=== PATIENT | female | born 1930 | race African-American/Black ===

== ENCOUNTER 2017-10-05 21:30 | Observation (INO) | payer MEDICARE, OTHER ==
[~2017-10-05] VITALS: Ht 165.1 cm; Wt 55.0 kg
[~2017-10-05 21:30] MED LIST: 1-ME1LIQ PO; ARIC5TAB6 PO; ASPI1TAB56 PO; ATOR40TA16 PO; CARV12.5 PO; FLEC150T PO; LEVO25TA4 PO; LIPI80TA16 PO; LISI-515 PO; MECL-62 PO; NIFE30TA8 PO; WARF5TAB PO
[2017-10-05 22:09] VITALS: BP 229/97; PULSE 77; RESP 16; TEMP 98.3; O2SAT 100
--- NOTE | 2017-10-05 22:15 | PD ---
HPI Chief Complaint: Psychiatric Symptoms Time Seen by Provider: 22:14 Travel History International Travel<30 days: No Contact w/Intl Traveler<30days: No Traveled to known affect area: No History of Present Illness HPI 87-year-old female with history of dementia, CAD, A. fib, presents emergency department under a Cortez act. Patient was with her friends at a restaurant. She was not acting herself. She did not remember where she was or why she was there. This is not her baseline. Police were called and they placed the patient under Cortez act. Patient is very pleasant. She tells me that she is here because she has not been to the doctor in a while and they wanted her to "get checked out." She denies any acute medical needs. Denies any recent head trauma. Denies any pain. Patient has no other symptoms to report. PFSH Past Medical History Hx Anticoagulant Therapy: Yes (COUMADIN ) Atrial Fibrillation: Yes Blood Disorders: No Anxiety: Yes Heart Rhythm Problems: No Cancer: No Cardiac Catheterization: Yes Cardiovascular Problems: Yes High Cholesterol: No Chemotherapy: No Chest Pain: Yes Congestive Heart Failure: No Coronary Artery Disease: Yes Diabetes: No Diminished Hearing: No Endocrine: No Genitourinary: No Hepatitis: No Hiatal Hernia: No Hypertension: Yes Immune Disorder: No Musculoskeletal: Yes (OSTEOPOROSIS, ARTHRITIS) Neurologic: Yes (OCCAS. HEADACHES) Psychiatric: No Reproductive: No Respiratory: No Radiation Therapy: No Thyroid Disease: No PNEUMOCCOCAL Vaccine (Year): 1 Menopausal: Yes Past Surgical History AICD: No Cardiac Surgery: Yes (VALVE REPLACEMENT) Cholecystectomy: Yes Genitourinary Surgery: Yes (RENAL CALCULI RETRIEVAL) Joint Replacement: No Pacemaker: No Other Surgery: Yes (HEART BYPASS SURG) Social History Alcohol Use: No Tobacco Use: No Substance Use: No Allergies-Medications (Allergen,Severity, Reaction): Coded Allergies: penicillin G (Unverified Allergy, Mild, HIVES, 02/21/17) Reported Meds & Prescriptions Reported Meds & Active Scripts Active Meclizine Hcl (Meclizine HCl) 25 Mg Tab 25 Mg PO TID PRN Nifedipine ER 24 HR (Nifedipine) 30 Mg Tab 30 Mg PO BID Lisinopril 20 Mg Tab 20 Mg PO Q12HR Levothyroxine (Levothyroxine Sodium) 25 Mcg Tab 25 Mcg PO DAILY@0600 Aricept (Donepezil HCl) 5 Mg Tablet 10 Mg PO HS Adult Aspirin EC Low Strength (Aspirin) 81 Mg Tabec 81 Mg PO DAILY Atorvastatin (Atorvastatin Calcium) 40 Mg Tab 40 Mg PO DAILY Reported Warfarin Sodium 5 mg (Warfarin Sodium) 5 Mg Tab 1 Tab PO DAILY Coreg 12.5 mg (Carvedilol) 12.5 Mg Tab 12.5 Mg PO BID Amlodipine Besylate 10 Mg Tab 10 Mg PO BID Lipitor (Atorvastatin Calcium) 80 Mg Tab 80 Mg PO HS Tambocor 150 mg (Flecainide Acetate) 150 Mg Tab 75 Mg PO BID Review of Systems Except as stated in HPI: all other systems reviewed are Neg Physical Exam Narrative GENERAL: Well-nourished, very pleasant female patient, in no acute distress. SKIN: Focused skin assessment warm/dry. HEAD: Atraumatic. Normocephalic. EYES: Pupils equal and round. No scleral icterus. No injection or drainage. ENT: No nasal bleeding or discharge. Mucous membranes pink and moist. NECK: Trachea midline. No JVD. CARDIOVASCULAR: Regular rate and rhythm. 2/6 systolic murmur appreciated. RESPIRATORY: No accessory muscle use. Clear to auscultation. Breath sounds equal bilaterally. GASTROINTESTINAL: Abdomen soft, non-tender, nondistended. Hepatic and splenic margins not palpable. MUSCULOSKELETAL: No obvious deformities. No clubbing. No cyanosis. No edema. NEUROLOGICAL: Awake. Oriented to self. She does know she is in the hospital. No obvious cranial nerve deficits. Motor grossly within normal limits. Equal strength bilateral extremities. Normal speech. PSYCHIATRIC: Very pleasant mood and affect. Data Data Last Documented VS Vital Signs Date Time Temp Pulse Resp B/P (MAP) Pulse Ox O2 Delivery O2 Flow Rate FiO2 10/05/17 22:09 98.3 77 16 229/97 (141) 100 Room Air Orders Orders Complete Blood Count With Diff (10/05/17 22:13) Comprehensive Metabolic Panel (10/05/17 22:13) Urinalysis - C+S If Indicated (10/05/17 22:13) Psych Screen (10/05/17 22:13) Drug Screen, Random Urine (10/05/17 22:13) Alcohol (Ethanol) (10/05/17 22:13) Salicylates (Aspirin) (10/05/17 22:13) Tylenol (Acetaminophen) (10/05/17 22:13) Coag Profile (10/05/17 22:23) Ct Brain W/O Iv Contrast(Rout) (10/05/17 ) Labs Laboratory Tests Test 10/05/17 22:10 10/05/17 22:20 White Blood Count 8.1 TH/MM3 Red Blood Count 4.58 MIL/MM3 Hemoglobin 10.6 GM/DL Hematocrit 33.1 % Mean Corpuscular Volume 72.2 FL Mean Corpuscular Hemoglobin 23.2 PG Mean Corpuscular Hemoglobin Concent 32.2 % Red Cell Distribution Width 16.3 % Platelet Count 235 TH/MM3 Mean Platelet Volume 7.6 FL Neutrophils (%) (Auto) 56.1 % Lymphocytes (%) (Auto) 31.0 % Monocytes (%) (Auto) 11.1 % Eosinophils (%) (Auto) 1.0 % Basophils (%) (Auto) 0.8 % Neutrophils # (Auto) 4.5 TH/MM3 Lymphocytes # (Auto) 2.5 TH/MM3 Monocytes # (Auto) 0.9 TH/MM3 Eosinophils # (Auto) 0.1 TH/MM3 Basophils # (Auto) 0.1 TH/MM3 CBC Comment DIFF FINAL Differential Comment MDM Medical Decision Making Medical Screen Exam Complete: Yes Emergency Medical Condition: Yes Medical Record Reviewed: Yes Differential Diagnosis Electrolyte abnormality versus dementia versus intracranial etiology versus UTI Narrative Course 87-year-old female presents emergency department for evaluation under Cortez act. Patient was placed under Cortez act due to altered mental status from her baseline while she was at a restaurant with her friends. Patient is very pleasant here. She has equal strength, no focal deficits weakness. She is awake and oriented to self. She does know she is at the hospital. Patient is quite hypertensive as well here. I discussed the patient my attending physician. Lab work as well as UA, CT imaging of the brain is ordered while the patient is in the ambulance hallway. Patient will be transferred to a medical bed once one becomes available. Care will be assumed by that medical provider. Diagnosis Primary Impression: Altered mental status Qualified Codes: R41.82 - Altered mental status, unspecified Additional Impression: Dementia Qualified Codes: F03.90 - Unspecified dementia without behavioral disturbance Condition: Stable Maggy JohnsonP Oct 05, 2017 22:15
[2017-10-05 22:30] LABS: AUTOMATED NEUTROPHIL # 4.5 TH/MM3 (1.8-7.7); BASOPHIL # 0.1 TH/MM3 (0-0.2); BASOPHIL % 0.8 % (0.0-2.0); EOSINOPHIL # 0.1 TH/MM3 (0-0.4); HEMATOCRIT 33.1 % (35.0-46.0); HEMOGLOBIN 10.6 GM/DL (11.6-15.3); LYMPHOCYTE # 2.5 TH/MM3 (1.0-4.8); MEAN CELL VOLUME 72.2 FL (80.0-100.0); MEAN CORPUSCULAR HEMOGLOBIN 23.2 PG (27.0-34.0); MEAN CORPUSCULAR HGB CONC 32.2 % (32.0-36.0); MEAN PLATELET VOLUME 7.6 FL (7.0-11.0); MONO % 11.1 % (0.0-8.0); MONOCYTE # 0.9 TH/MM3 (0-0.9); NEUT % 56.1 % (16.0-70.0); PLATELET COUNT 235 TH/MM3 (150-450); RED BLOOD COUNT 4.58 MIL/MM3 (4.00-5.30); RED CELL DISTRIBUTION WIDTH 16.3 % (11.6-17.2); WHITE BLOOD COUNT 8.1 TH/MM3 (4.0-11.0)
[2017-10-05 22:51] LABS: ALBUMIN 4.2 GM/DL (3.4-5.0); ALT (GPT) 15 U/L (10-53); AST (GOT) 23 U/L (15-37); BICARBONATE 29.2 MEQ/L (21.0-32.0); BLOOD UREA NITROGEN 28 MG/DL (7-18); CALCIUM 9.5 MG/DL (8.5-10.1); CHLORIDE 105 MEQ/L (98-107); CREATININE 1.19 MG/DL (0.50-1.00); GLOMERULAR FILTRATION RATE 52 ML/MIN (>89); GLUCOSE,RANDOM 146 MG/DL (74-106); SODIUM (NA) 142 MEQ/L (136-145)
[2017-10-05 22:53] LABS: ALKALINE PHOSPHATASE 63 U/L (45-117); TOTAL BILIRUBIN ADULT 0.6 MG/DL (0.2-1.0)
[2017-10-05 22:54] LABS: ACETAMINOPHEN LESS THAN 2.0 MCG/ML (10.0-30.0)
[2017-10-05 22:58] LABS: INTERNATIONAL NORMALIZED RATIO 1.1 RATIO; PROTHROMBIN TIME - PATIENT 10.8 SEC (9.8-11.6)
--- NOTE | 2017-10-05 23:13 | RADRPT ---
EXAM DATE/TIME: 10/05/2017 22:46 [facility] COMPARISON: CT BRAIN W/O CONTRAST, February 13, 2017, 19:44. INDICATIONS : Altered mental status. RADIATION DOSE: 35.12 CTDIvol (mGy) MEDICAL HISTORY : Non-responsive. SURGICAL HISTORY : Non-responsive. ENCOUNTER: Initial ACUITY: 1 day PAIN SCALE: Non-responsive LOCATION: cranial TECHNIQUE: Multiple contiguous axial images were obtained of the head. Using automated exposure control and adj ustment of the mA and/or kV according to patient size, radiation dose was kept as low as reasonably a chievable to obtain optimal diagnostic quality images. DICOM format image data is available electro nically for review and comparison. FINDINGS: CEREBRUM: The ventricles are and cortical sulci are widened. The ventricles are widened out of proportion to th e sulcal widening. There is persistent mild decreased density in the right parietal white matter. No evidence of midline shift, mass lesion, hemorrhage or acute infarction. No extra-axial fluid collec tions are seen. POSTERIOR FOSSA: The cerebellum and brainstem are intact. The 4th ventricle is midline. The cerebellopontine angle i s unremarkable. EXTRACRANIAL: The visualized portion of the orbits is intact. SKULL: The calvaria is intact. No evidence of skull fracture. CONCLUSION: 1. Atrophy. The ventricles are dilated out of proportion to the sulcal widening which suggests normal pressure hydrocephalus. 2. An acute area of hemorrhage or mass effect is not seen. Vishal Moreland MD on October 05, 2017 at 23:10 Board Certified Radiologist. This report was verified electronically.
[2017-10-05 23:15] VITALS: BP 219/99; PULSE 69; RESP 18; TEMP 98.5; O2SAT 99
[2017-10-06] VITALS (8 sets, daily range): BP systolic 164–236; BP diastolic 76–107; PULSE 47–73; RESP 12–18; TEMP 98; O2SAT 96–100
[2017-10-06 00:36] LABS: BACTERIA, URINE RARE /hpf; BILIRUBIN, URINE NEG (NEG); BLOOD, URINE TRACE (NEG); GLUCOSE,URINE NEG (NEG); HYALINE CAST, URINE 12 /lpf (RARE); KETONE, URINE NEG (NEG); MUCUS URINE FEW /lpf (OCC); NITRITE,URINE NEG (NEG); PH, URINE 5.5 (5.0-8.5); SQUAMOUS EPITHELIAL CELL URINE 3 /hpf (0-5); URINE COLOR YELLOW (YELLW/STRAW); URINE LEUKOCYTE ESTERASE LARGE (NEG)
[2017-10-06] MEDS ORDERED: cefTRIAXone INJ 1,000 MG in SODIUM CHLORIDE 0.9% INJ 100 ML IV ONE ×2 (00:45→12:00)
[2017-10-06] MEDS ORDERED: CEPH-460 PO (01:14)
--- NOTE | 2017-10-06 01:14 | PD ---
Data Data Last Documented VS Vital Signs Date Time Temp Pulse Resp B/P (MAP) Pulse Ox O2 Delivery O2 Flow Rate FiO2 10/06/17 00:13 73 18 236/107 (150) 100 Room Air 10/05/17 23:15 98.5 Orders Orders Complete Blood Count With Diff (10/05/17 22:13) Comprehensive Metabolic Panel (10/05/17 22:13) Urinalysis - C+S If Indicated (10/05/17 22:13) Psych Screen (10/05/17 22:13) Drug Screen, Random Urine (10/05/17 22:13) Alcohol (Ethanol) (10/05/17 22:13) Salicylates (Aspirin) (10/05/17 22:13) Tylenol (Acetaminophen) (10/05/17 22:13) Coag Profile (10/05/17 22:23) Ct Brain W/O Iv Contrast(Rout) (10/05/17 ) Urine Culture (10/06/17 00:10) Ceftriaxone Inj (Rocephin Inj) (10/06/17 00:45) Lisinopril (Prinivil) (10/06/17 01:15) Labs Laboratory Tests Test 10/05/17 22:10 10/05/17 22:20 10/06/17 00:10 White Blood Count 8.1 TH/MM3 Red Blood Count 4.58 MIL/MM3 Hemoglobin 10.6 GM/DL Hematocrit 33.1 % Mean Corpuscular Volume 72.2 FL Mean Corpuscular Hemoglobin 23.2 PG Mean Corpuscular Hemoglobin Concent 32.2 % Red Cell Distribution Width 16.3 % Platelet Count 235 TH/MM3 Mean Platelet Volume 7.6 FL Neutrophils (%) (Auto) 56.1 % Lymphocytes (%) (Auto) 31.0 % Monocytes (%) (Auto) 11.1 % Eosinophils (%) (Auto) 1.0 % Basophils (%) (Auto) 0.8 % Neutrophils # (Auto) 4.5 TH/MM3 Lymphocytes # (Auto) 2.5 TH/MM3 Monocytes # (Auto) 0.9 TH/MM3 Eosinophils # (Auto) 0.1 TH/MM3 Basophils # (Auto) 0.1 TH/MM3 CBC Comment DIFF FINAL Differential Comment Blood Urea Nitrogen 28 MG/DL Creatinine 1.19 MG/DL Random Glucose 146 MG/DL Total Protein 9.0 GM/DL Albumin 4.2 GM/DL Calcium Level 9.5 MG/DL Alkaline Phosphatase 63 U/L Aspartate Amino Transf (AST/SGOT) 23 U/L Alanine Aminotransferase (ALT/SGPT) 15 U/L Total Bilirubin 0.6 MG/DL Sodium Level 142 MEQ/L Potassium Level 3.4 MEQ/L Chloride Level 105 MEQ/L Carbon Dioxide Level 29.2 MEQ/L Anion Gap 8 MEQ/L Estimat Glomerular Filtration Rate 52 ML/MIN Salicylates Level 3.1 MG/DL Acetaminophen Level LESS THAN 2.0 MCG/ML Ethyl Alcohol Level LESS THAN 3 MG/DL Prothrombin Time 10.8 SEC Prothromb Time International Ratio 1.1 RATIO Activated Partial Thromboplast Time 21.9 SEC Urine Color YELLOW Urine Turbidity CLEAR Urine pH 5.5 Urine Specific [place] 1.029 Urine Protein 30 mg/dL Urine Glucose (UA) NEG mg/dL Urine Ketones NEG mg/dL Urine Occult Blood TRACE Urine Nitrite NEG Urine Bilirubin NEG Urine Urobilinogen LESS THAN 2.0 MG/DL Urine Leukocyte Esterase LARGE Urine RBC 7 /hpf Urine WBC 17 /hpf Urine Squamous Epithelial Cells 3 /hpf Urine Bacteria RARE /hpf Urine Hyaline Casts 12 /lpf Urine Mucus FEW /lpf Microscopic Urinalysis Comment CULTURE INDICATED Urine Opiates Screen NEG Urine Barbiturates Screen NEG Urine Amphetamines Screen NEG Urine Benzodiazepines Screen NEG Urine Cocaine Screen NEG Urine Cannabinoids Screen NEG MDM Supervised Visit with LYLE: Yes Narrative Course 87-year-old woman, history of dementia, more confused at restaurant tonight. Found to have UTI. Looks otherwise well. Workup otherwise negative. Will give treatment for UTI, outpatient follow-up. She is placed under a Cortez act, but does not appear to be an imminent threat to herself or others to meet criteria for the Cortez act. She is awake alert and pleasant albeit a little bit confused. She is cooperative and able take medications. She lives with her family. She will be discharged to her family. Diagnosis Primary Impression: Altered mental status Qualified Codes: R41.82 - Altered mental status, unspecified Additional Impressions: Dementia Qualified Codes: F03.90 - Unspecified dementia without behavioral disturbance UTI (urinary tract infection) Patient Instructions: General Instructions Additional Instruction: Take antibiotics as prescribed. Follow-up with her primary doctor for any persistent symptoms. Med/Other Pt SpecificInfo: Prescription(s) given Scripts Cephalexin (Keflex) 500 Mg Capsule 500 MG PO Q8H for Infection for 7 Days, #21 CAP 0 Refills Prov: Bertin Anguiano MD 10/06/17 Disposition: 01 DISCHARGE HOME Condition: Stable Bertin Anguiano MD Oct 06, 2017 01:14
[2017-10-06] MEDS ORDERED: LISINOPRIL 20 MG TAB PO ONE ×2 (01:15→12:00)
[2017-10-06] MEDS ORDERED: HALOPERIDOL LACTATE 5 MG/ML AMP ONE (04:07)
[2017-10-06] MEDS ORDERED: HALOPERIDOL LACTATE 5 MG/ML AMP IM ONE (04:15)
[2017-10-06] MEDS ORDERED: CEPHALEXIN MONOHYDRATE 500 MG CAP PO ONE (11:15)
--- NOTE | 2017-10-06 11:17 | PD ---
Physical Exam Date Seen by Provider: Oct 06, 2017 Time Seen by Provider: 11:16 Narrative 87-year-old -[place] female with history of dementia and urinary tract infection, was a corrected last evening for her behavior, and kept in J pod overnight. She has been seen by psychiatric services and deemed to be psychiatrically stable and Cortez act was lifted. Patient is currently now moved to [facility], and awaiting case management for discharge arrangements. Patient is continued on Keflex 500 mg 3 times daily 7 days. Case management will be contacted for discharge arrangements. Case management stated that the patient is unable to be discharged home with family at this time, and DCF has been involved. They recommended admitting the patient for observation and treatment for UTI. Call was placed to Dr. Elder, the hospitalist production drilling machine operator for [facility] , and he recommended admitting the patient to rehab rather than the full admission as she only has a simple UTI with dementia. He stated case management could accomplish this. Call was then placed case management to try to arrange this. Data Data Last Documented VS Vital Signs Date Time Temp Pulse Resp B/P (MAP) Pulse Ox O2 Delivery O2 Flow Rate FiO2 10/06/17 11:25 71 18 217/98 (137) 99 Room Air 10/05/17 23:15 98.5 Orders Orders Complete Blood Count With Diff (10/05/17 22:13) Comprehensive Metabolic Panel (10/05/17 22:13) Urinalysis - C+S If Indicated (10/05/17 22:13) Psych Screen (10/05/17 22:13) Drug Screen, Random Urine (10/05/17 22:13) Alcohol (Ethanol) (10/05/17 22:13) Salicylates (Aspirin) (10/05/17 22:13) Tylenol (Acetaminophen) (10/05/17 22:13) Coag Profile (10/05/17 22:23) Ct Brain W/O Iv Contrast(Rout) (10/05/17 ) Urine Culture (10/06/17 00:10) Ceftriaxone Inj (Rocephin Inj) (10/06/17 00:45) Lisinopril (Prinivil) (10/06/17 01:15) Haloperidol Inj (Haldol Inj) (10/06/17 04:15) Haloperidol Inj (Haldol Inj) (10/06/17 04:07) Cephalexin (Keflex) (10/06/17 11:15) Lisinopril (Prinivil) (10/06/17 12:00) Carvedilol (Coreg) (10/06/17 12:00) Iv Access Insert/Monitor (10/06/17 11:39) Ceftriaxone Inj (Rocephin Inj) (10/06/17 12:00) Donepezil (Aricept) (10/06/17 12:00) (Hub Use Only)Inp Phy Cons/Ref (10/06/17 ) (Hub Use Only)Inp Phy Cons/Ref (10/06/17 ) Diet Regular Basic (10/06/17 Lunch) (Hub Use Only)In Phy Cons/Ref (10/06/17 ) Admit Order (Ed Use Only) (10/06/17 14:32) Labs Laboratory Tests Test 10/05/17 22:10 10/05/17 22:20 10/06/17 00:10 White Blood Count 8.1 TH/MM3 Red Blood Count 4.58 MIL/MM3 Hemoglobin 10.6 GM/DL Hematocrit 33.1 % Mean Corpuscular Volume 72.2 FL Mean Corpuscular Hemoglobin 23.2 PG Mean Corpuscular Hemoglobin Concent 32.2 % Red Cell Distribution Width 16.3 % Platelet Count 235 TH/MM3 Mean Platelet Volume 7.6 FL Neutrophils (%) (Auto) 56.1 % Lymphocytes (%) (Auto) 31.0 % Monocytes (%) (Auto) 11.1 % Eosinophils (%) (Auto) 1.0 % Basophils (%) (Auto) 0.8 % Neutrophils # (Auto) 4.5 TH/MM3 Lymphocytes # (Auto) 2.5 TH/MM3 Monocytes # (Auto) 0.9 TH/MM3 Eosinophils # (Auto) 0.1 TH/MM3 Basophils # (Auto) 0.1 TH/MM3 CBC Comment DIFF FINAL Differential Comment Blood Urea Nitrogen 28 MG/DL Creatinine 1.19 MG/DL Random Glucose 146 MG/DL Total Protein 9.0 GM/DL Albumin 4.2 GM/DL Calcium Level 9.5 MG/DL Alkaline Phosphatase 63 U/L Aspartate Amino Transf (AST/SGOT) 23 U/L Alanine Aminotransferase (ALT/SGPT) 15 U/L Total Bilirubin 0.6 MG/DL Sodium Level 142 MEQ/L Potassium Level 3.4 MEQ/L Chloride Level 105 MEQ/L Carbon Dioxide Level 29.2 MEQ/L Anion Gap 8 MEQ/L Estimat Glomerular Filtration Rate 52 ML/MIN Salicylates Level 3.1 MG/DL Acetaminophen Level LESS THAN 2.0 MCG/ML Ethyl Alcohol Level LESS THAN 3 MG/DL Prothrombin Time 10.8 SEC Prothromb Time International Ratio 1.1 RATIO Activated Partial Thromboplast Time 21.9 SEC Urine Color YELLOW Urine Turbidity CLEAR Urine pH 5.5 Urine Specific [place] 1.029 Urine Protein 30 mg/dL Urine Glucose (UA) NEG mg/dL Urine Ketones NEG mg/dL Urine Occult Blood TRACE Urine Nitrite NEG Urine Bilirubin NEG Urine Urobilinogen LESS THAN 2.0 MG/DL Urine Leukocyte Esterase LARGE Urine RBC 7 /hpf Urine WBC 17 /hpf Urine Squamous Epithelial Cells 3 /hpf Urine Bacteria RARE /hpf Urine Hyaline Casts 12 /lpf Urine Mucus FEW /lpf Microscopic Urinalysis Comment CULTURE INDICATED Urine Opiates Screen NEG Urine Barbiturates Screen NEG Urine Amphetamines Screen NEG Urine Benzodiazepines Screen NEG Urine Cocaine Screen NEG Urine Cannabinoids Screen NEG MDM Medical Record Reviewed: Yes Supervised Visit with LYLE: Yes Narrative Course 87-year-old -[place] female with history of dementia and urinary tract infection, was a corrected last evening for her behavior, and kept in J pot overnight. She has been seen by psychiatric services and deemed to be psychiatrically stable and Cortez act was lifted. Patient is currently now moved to [facility], and awaiting case management for discharge arrangements. Patient is continued on Keflex 500 mg 3 times daily 7 days. Case management will be contacted for discharge arrangements. Case management stated that the patient is unable to be discharged home with family at this time, and [facility] has been involved. They recommended admitting the patient for observation and treatment for UTI. Call was placed to Dr. Elder, the hospitalist production drilling machine operator for [facility] , and he recommended admitting the patient to rehab rather than the full admission as she only has a simple UTI with dementia. He stated case management could accomplish this. Call was then placed case management to try to arrange this. Patient will be continued on Rocephin 1000 mg IV daily for 7 days. Patient also given lisinopril 20 mg twice daily. Patient also given Coreg 12.5 mg twice daily. Patient is to be transferred to rehab facility for her ongoing treatment Case management was unable to find placement for this patient, and due to her dementia and altered mental status she remains in unsafe discharge. Calls placed to Dr. Elder for admission until placement can be arranged. Diagnosis Primary Impression: Altered mental status Qualified Codes: R41.82 - Altered mental status, unspecified Additional Impressions: Dementia Qualified Codes: F03.90 - Unspecified dementia without behavioral disturbance UTI (urinary tract infection) Qualified Codes: N30.00 - Acute cystitis without hematuria Admitting Information Admitting Physician Requests: Observation Additional Instruction: Patient will be continued on Rocephin 1000 mg IV daily for 7 days. Patient also given lisinopril 20 mg twice daily. Patient also given Coreg 12.5 mg twice daily. Patient is to be transferred to rehab facility for her ongoing treatment Condition: Dwight Nicholas Oct 06, 2017 11:17
--- NOTE | 2017-10-06 11:50 | PD ---
History of Present Illness Chief Complaint: Psychiatric Symptoms Time Seen by Provider: 10:25 Travel History International Travel<30 Days: No Contact w/Intl Traveler<30days: No Known affected area: No Legal Status Legal Status: Cortez Act Cortez Act Signed By: Armaan Rodriguez History of Present Illness: History of Present Illness HPI 87-year-old, -[place] female with history of dementia, living by herself , who presents emergency department under a Cortez act initiated by law enforcement. The Cortez act report alleges that she was with her friends at a restaurant. And was not acting herself. She did not remember where she was or why she was there. According to the report this is not her baseline. The patient was placed in J pod as she had been wandering around the ED. EMR is reviewed. The patient was seen in the ED back in March 2017 after an argument with her [id number] and was found to have a UTI. She was treated and released home.. Patient currently has also been diagnosed with a UTI. The patient is seen and J pod. She is oriented to her name. Not oriented to time, place or situation. Patient appears disheveled. She is calm and engaging. She does not appear to be responding to internal stimuli. She does not appear depressed and denies any feelings of sadness or crying. The patient is unable to tell me any other information at this time. She is unable to name the president. She was able to spell the word world forward. Telephone call to collin Almodovar [phone]. Generic message left on voicemail for her to return my call. DCF worker was on unit to interview patient. The department had received a complain within the last 24 hours that the patient had been walking around her complex and that a couple of nights ago she was outside in her underwear. PFSH Past Medical History Hx Anticoagulant Therapy: Yes (COUMADIN ) Atrial Fibrillation: Yes Blood Disorders: No Anxiety: Yes Heart Rhythm Problems: No Cancer: No Cardiac Catheterization: Yes Cardiovascular Problems: Yes High Cholesterol: No Chemotherapy: No Chest Pain: Yes Congestive Heart Failure: No Coronary Artery Disease: Yes Diabetes: No Diminished Hearing: No Endocrine: No Genitourinary: No Hepatitis: No Hiatal Hernia: No Hypertension: Yes Immune Disorder: No Medical other: Yes (ANEMIA) Musculoskeletal: Yes (OSTEOPOROSIS, ARTHRITIS) Neurologic: Yes (OCCAS. HEADACHES) Psychiatric: No Reproductive: No Respiratory: No Radiation Therapy: No Thyroid Disease: No PNEUMOCCOCAL Vaccine (Year): 1 Menopausal: Yes Past Surgical History AICD: No Cardiac Surgery: Yes (VALVE REPLACEMENT) Cholecystectomy: Yes Genitourinary Surgery: Yes (RENAL CALCULI RETRIEVAL) Joint Replacement: No Pacemaker: No Other Surgery: Yes (HEART BYPASS SURG) Psychiatric History Psychiatric History Hx Psychiatric Treatment: None per record reviewed. History of Inpatient Treatment: No Guns or firearms in home: No Social History Patient has a son and a daughter who lives out of state. She has been living by herself. 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 She is an unreliable historian. Hx Alcohol Use: No Hx Tobacco Use: No Hx Substance Use: No Family Psychiatric History Unable to provide information Allergies-Medications (Allergen,Severity, Reaction): Coded Allergies: penicillin G (Unverified Allergy, Mild, HIVES, 10/05/17) Reported Meds & Prescriptions Reported Meds & Active Scripts Active Keflex (Cephalexin) 500 Mg Capsule 500 Mg PO Q8H 7 Days Nifedipine ER 24 HR (Nifedipine) 30 Mg Tab 30 Mg PO BID Lisinopril 20 Mg Tab 20 Mg PO Q12HR Levothyroxine (Levothyroxine Sodium) 25 Mcg Tab 25 Mcg PO DAILY@0600 Aricept (Donepezil HCl) 5 Mg Tablet 10 Mg PO HS Adult Aspirin EC Low Strength (Aspirin) 81 Mg Tabec 81 Mg PO DAILY Atorvastatin (Atorvastatin Calcium) 40 Mg Tab 40 Mg PO DAILY Meclizine Hcl (Meclizine HCl) 25 Mg Tab 25 Mg PO TID PRN Reported Warfarin Sodium 5 Mg Tab 1 Tab PO DAILY Coreg 12.5 mg (Carvedilol) 12.5 Mg Tab 12.5 Mg PO BID 1-Methyl 2-Pyrrolidinone (1-Methyl 2-Pyrrolidone (Bulk)) 10 Mg Tab 10 Mg PO BID Lipitor (Atorvastatin Calcium) 80 Mg Tab 80 Mg PO HS Tambocor 150 mg (Flecainide Acetate) 150 Mg Tab 75 Mg PO BID Review of Systems ROS Limitations: Poor Historian Mental Status Examination Appearance: Disheveled Consciousness: Alert Orientation: Person Motor Activity: Normal gait Speech: Unremarkable Language: Other (Some word finding difficulties noted) Fund of Knowledge: Inadequate Attention and Concentration: Easily Distracted Memory: Impaired Mood: Appropriate Affect: Appropriate Thought Process & Associations: Intact Thought Content: Appropriate Hallucination Type: None Delusion Type: None Suicidal Ideation: No Suicidal Plan: No Suicidal Intention: No Homicidal Ideation: No Homicidal Plan: No Homicidal Intention: No Insight: Poor Judgment: Poor MDM Medical Decision Making Medical Record Reviewed: Yes Assessment/Plan 87-year-old, -[place] female with history of dementia, living by herself , who presents emergency department under a Cortez act initiated by law enforcement. The Cortez act report alleges that she was with her friends at a restaurant. And was not acting herself. She did not remember where she was or why she was there. According to the report this is not her baseline. The patient was placed in J pod as she had been wandering around the ED. Patient currently has also been diagnosed with a UTI and has begun treatment. She does not meet criteria to remain under the Cortez act as she presents no evidence of unstable mental illness as defined under the Cortez act.This may in fact be a placement issue. Case discussed with telephone lineworker psychiatrist Dr. Flores. Patient is to be moved back to general ed. Acuity level of J pod makes it unsafe for her to be here . The cortez act is lifted. Orders Orders Complete Blood Count With Diff (10/05/17 22:13) Comprehensive Metabolic Panel (10/05/17 22:13) Urinalysis - C+S If Indicated (10/05/17 22:13) Psych Screen (10/05/17 22:13) Drug Screen, Random Urine (10/05/17 22:13) Alcohol (Ethanol) (10/05/17 22:13) Salicylates (Aspirin) (10/05/17 22:13) Tylenol (Acetaminophen) (10/05/17 22:13) Coag Profile (10/05/17 22:23) Ct Brain W/O Iv Contrast(Rout) (10/05/17 ) Urine Culture (10/06/17 00:10) Ceftriaxone Inj (Rocephin Inj) (10/06/17 00:45) Lisinopril (Prinivil) (10/06/17 01:15) Haloperidol Inj (Haldol Inj) (10/06/17 04:15) Haloperidol Inj (Haldol Inj) (10/06/17 04:07) Results Vital Signs Date Time Temp Pulse Resp B/P (MAP) Pulse Ox O2 Delivery O2 Flow Rate FiO2 10/06/17 01:18 66 18 195/88 (123) 100 Room Air 10/06/17 00:13 73 18 236/107 (150) 100 Room Air 10/05/17 23:15 98.5 69 18 219/99 (139) 99 10/05/17 22:09 98.3 77 16 229/97 (141) 100 Room Air Laboratory Tests Test 10/05/17 22:10 10/05/17 22:20 10/06/17 00:10 White Blood Count 8.1 Red Blood Count 4.58 Hemoglobin 10.6 Hematocrit 33.1 Mean Corpuscular Volume 72.2 Mean Corpuscular Hemoglobin 23.2 Mean Corpuscular Hemoglobin Concent 32.2 Red Cell Distribution Width 16.3 Platelet Count 235 Mean Platelet Volume 7.6 Neutrophils (%) (Auto) 56.1 Lymphocytes (%) (Auto) 31.0 Monocytes (%) (Auto) 11.1 Eosinophils (%) (Auto) 1.0 Basophils (%) (Auto) 0.8 Neutrophils # (Auto) 4.5 Lymphocytes # (Auto) 2.5 Monocytes # (Auto) 0.9 Eosinophils # (Auto) 0.1 Basophils # (Auto) 0.1 CBC Comment DIFF FINAL Differential Comment Blood Urea Nitrogen 28 Creatinine 1.19 Random Glucose 146 Total Protein 9.0 Albumin 4.2 Calcium Level 9.5 Alkaline Phosphatase 63 Aspartate Amino Transf (AST/SGOT) 23 Alanine Aminotransferase (ALT/SGPT) 15 Total Bilirubin 0.6 Sodium Level 142 Potassium Level 3.4 Chloride Level 105 Carbon Dioxide Level 29.2 Anion Gap 8 Estimat Glomerular Filtration Rate 52 Salicylates Level 3.1 Acetaminophen Level LESS THAN 2.0 Ethyl Alcohol Level LESS THAN 3 Prothrombin Time 10.8 Prothromb Time International Ratio 1.1 Activated Partial Thromboplast Time 21.9 Urine Color YELLOW Urine Turbidity CLEAR Urine pH 5.5 Urine Specific [place] 1.029 Urine Protein 30 Urine Glucose (UA) NEG Urine Ketones NEG Urine Occult Blood TRACE Urine Nitrite NEG Urine Bilirubin NEG Urine Urobilinogen LESS THAN 2.0 Urine Leukocyte Esterase LARGE Urine RBC 7 Urine WBC 17 Urine Squamous Epithelial Cells 3 Urine Bacteria RARE Urine Hyaline Casts 12 Urine Mucus FEW Microscopic Urinalysis Comment CULTURE INDICATED Urine Opiates Screen NEG Urine Barbiturates Screen NEG Urine Amphetamines Screen NEG Urine Benzodiazepines Screen NEG Urine Cocaine Screen NEG Urine Cannabinoids Screen NEG Date/Time Source Procedure Growth Status 10/06/17 00:10 Urine Random Urine Urine Culture Pending Worksheet Diagnosis Primary Impression: Altered mental status Additional Impressions: Dementia UTI (urinary tract infection) Psychiatrically Cleared: Yes Departure Forms: Tests/Procedures Patient Instructions: General Instructions, Cephalexin (By mouth) Additional Instructions: Take antibiotics as prescribed. Follow-up with her primary doctor for any persistent symptoms. Disposition: 01 DISCHARGE HOME Condition: Stable Problem Qualifiers Primary Impression: Altered mental status Qualified Codes: R41.82 - Altered mental status, unspecified Additional Impressions: Dementia Qualified Codes: F03.90 - Unspecified dementia without behavioral disturbance UTI (urinary tract infection) Qualified Codes: N30.00 - Acute cystitis without hematuria Gloria Richard Oct 06, 2017 11:50
[2017-10-06] MEDS ORDERED: DONEPEZIL HCL 5 MG TAB PO ONE (12:00)
[2017-10-06] MEDS ORDERED: CARVEDILOL 12.5 MG TAB PO ONE (12:00)
[2017-10-06] MEDS ORDERED: SODIUM CHLORIDE 0.9% FLUSH 10 ML FLUSH IV FLUSH PRN (16:00)
[2017-10-06] MEDS ORDERED: ONDANSETRON HCL 4 MG/2 ML VIAL IVP PRN (16:00)
[2017-10-06] MEDS ORDERED: MAGNESIUM HYDROXIDE SUSP 30 ML CUP PO PRN (16:00)
[2017-10-06] MEDS ORDERED: cloNIDine HCL 0.1 MG TAB PO ONE ×2 (16:00→17:00)
[2017-10-06] MEDS ORDERED: NALOXONE HCL 0.4 MG/ML AMP IV PUSH PRN (16:00)
[2017-10-06] MEDS ORDERED: ACETAMINOPHEN 325 MG TAB PO PRN (16:00)
--- NOTE | 2017-10-06 16:12 | RADRPT ---
EXAM DATE/TIME: 10/06/2017 15:57 [facility] COMPARISON: CHEST SINGLE AP, February 13, 2017, 19:14. INDICATIONS : Cough starting today MEDICAL HISTORY : Myocardial infarction. SURGICAL HISTORY : CABG. ENCOUNTER: Initial ACUITY: 1 day PAIN SCORE: 0/10 LOCATION: Bilateral chest FINDINGS: A single view of the chest demonstrates the lungs to be symmetrically aerated without evidence of mas s, infiltrate or effusion. The cardiomediastinal contours are unremarkable. Osseous structures are intact. The patient is status post median sternotomy. Atherosclerotic changes are noted in the aorta. There are tracheal calcifications. There is mild scarring at the left lung base. CONCLUSION: No acute disease. There is no evidence of pneumonia. Pan Wood MD on October 06, 2017 at 16:09 Board Certified Radiologist. This report was verified electronically.
--- NOTE | 2017-10-06 16:21 | HHI.HP ---
HPI Service CP Hospitalists Primary Care Physician Unknown Admission Diagnosis UTI/Altered Mental Status/Dementia Chief Complaint: AMS brought in under backer act Travel History International Travel<30 Days: No Contact w/Intl Traveler <30 Da: No Traveled to Known Affected Are: No History of Present Illness This is an 87 year old female with past medical history which includes paroxysmal atrial fibrillation, and was stopped July 2016 to 10 concerns of noncompliance and risk of falls, hypertension, dementia, anxiety, hypothyroidism , chronic anemia. The patient is currently a poor historian and unable to provide meaningful information therefore information gathered from physical exam as well as prior charting and review of outpatient records. Patient was brought into the emergency department yesterday under a Cortez act. Patient was with her friends at a restaurant. She was not acting herself. She did not remember where she was or why she was there. Police were called and they placed the patient under Cortez act. Patient spent the evening and in J pod ( locked psychiatric observation unit) overnight. Patient's Cortez act was listed this morning. Case management/emergency department and unable to safely to discharge the patient therefore we have been contacted for admission to the hospital. Patient found to have possible urinary tract infection by emergency department and started on Keflex 7 days Review of Systems ROS Limitations: Clinical Condition, Poor Historian Past Family Social History Past Medical History Paroxysmal Afib (warfarin stopped in Jul 2016 due to concerns with noncompliance , risk of falls) HTN Dementia/delusions Anxiety Hypothyroidism Chronic anemia Past Surgical History AVR with tissue valve 09/2012 1 vessel CABG 09/2012 Cholecystectomy Reported Medications Nifedipine ER 24 HR (Nifedipine) 30 Mg Tab 30 Mg PO BID Lisinopril 20 Mg Tab 20 Mg PO Q12HR Levothyroxine (Levothyroxine Sodium) 25 Mcg Tab 25 Mcg PO DAILY@0600 Aricept (Donepezil HCl) 5 Mg Tablet 10 Mg PO HS Adult Aspirin EC Low Strength (Aspirin) 81 Mg Tabec 81 Mg PO DAILY Atorvastatin (Atorvastatin Calcium) 40 Mg Tab 40 Mg PO DAILY Allergies: Coded Allergies: penicillin G (Unverified Allergy, Mild, HIVES, 10/05/17) Family History Noncontributory Social History Lives alone Retired Denies tobacco use Denies EtOH use Physical Exam Vital Signs Vital Signs Date Time Temp Pulse Resp B/P (MAP) Pulse Ox O2 Delivery O2 Flow Rate FiO2 10/06/17 15:46 47 12 210/95 (133) 100 10/06/17 11:25 71 18 217/98 (137) 99 Room Air 10/06/17 01:18 66 18 195/88 (123) 100 Room Air 10/06/17 00:13 73 18 236/107 (150) 100 Room Air 10/05/17 23:15 98.5 69 18 219/99 (139) 99 10/05/17 22:09 98.3 77 16 229/97 (141) 100 Room Air Physical Exam GENERAL: This is a elderly demented 87 year old female patient pleasantly confused SKIN: Generalized thinning of skin HEAD: Atraumatic. Normocephalic. No temporal or scalp tenderness. EYES: Extraocular motions intact. No scleral icterus. No injection or drainage. CARDIOVASCULAR: Regular rate and rhythm RESPIRATORY: Clear to auscultation. Breath sounds equal bilaterally. GASTROINTESTINAL: Abdomen soft, non-tender, nondistended. MUSCULOSKELETAL: Extremities without clubbing, cyanosis, or edema. No joint tenderness, effusion, or edema noted. No calf tenderness. Negative Homans sign bilaterally. NEUROLOGICAL: Awake but confused. No focal deficits. Motor and sensory grossly within normal limits. 4 out of 5 muscle strength in all muscle groups. Laboratory Laboratory Tests Test 10/05/17 22:10 10/05/17 22:20 10/06/17 00:10 White Blood Count 8.1 Red Blood Count 4.58 Hemoglobin 10.6 Hematocrit 33.1 Mean Corpuscular Volume 72.2 Mean Corpuscular Hemoglobin 23.2 Mean Corpuscular Hemoglobin Concent 32.2 Red Cell Distribution Width 16.3 Platelet Count 235 Mean Platelet Volume 7.6 Neutrophils (%) (Auto) 56.1 Lymphocytes (%) (Auto) 31.0 Monocytes (%) (Auto) 11.1 Eosinophils (%) (Auto) 1.0 Basophils (%) (Auto) 0.8 Neutrophils # (Auto) 4.5 Lymphocytes # (Auto) 2.5 Monocytes # (Auto) 0.9 Eosinophils # (Auto) 0.1 Basophils # (Auto) 0.1 CBC Comment DIFF FINAL Differential Comment Blood Urea Nitrogen 28 Creatinine 1.19 Random Glucose 146 Total Protein 9.0 Albumin 4.2 Calcium Level 9.5 Alkaline Phosphatase 63 Aspartate Amino Transf (AST/SGOT) 23 Alanine Aminotransferase (ALT/SGPT) 15 Total Bilirubin 0.6 Sodium Level 142 Potassium Level 3.4 Chloride Level 105 Carbon Dioxide Level 29.2 Anion Gap 8 Estimat Glomerular Filtration Rate 52 Salicylates Level 3.1 Acetaminophen Level LESS THAN 2.0 Ethyl Alcohol Level LESS THAN 3 Prothrombin Time 10.8 Prothromb Time International Ratio 1.1 Activated Partial Thromboplast Time 21.9 Urine Color YELLOW Urine Turbidity CLEAR Urine pH 5.5 Urine Specific [place] 1.029 Urine Protein 30 Urine Glucose (UA) NEG Urine Ketones NEG Urine Occult Blood TRACE Urine Nitrite NEG Urine Bilirubin NEG Urine Urobilinogen LESS THAN 2.0 Urine Leukocyte Esterase LARGE Urine RBC 7 Urine WBC 17 Urine Squamous Epithelial Cells 3 Urine Bacteria RARE Urine Hyaline Casts 12 Urine Mucus FEW Microscopic Urinalysis Comment CULTURE INDICATED Urine Opiates Screen NEG Urine Barbiturates Screen NEG Urine Amphetamines Screen NEG Urine Benzodiazepines Screen NEG Urine Cocaine Screen NEG Urine Cannabinoids Screen NEG Date/Time Source Procedure Growth Status 10/06/17 00:10 Urine Random Urine Urine Culture Pending Worksheet Result Diagram: 10/05/17 2210 10/05/17 2210 Imaging Last Impressions Head CT 10/05/17 0000 Signed Impressions: Service Date/Time: September 22:46 - CONCLUSION: 1. Atrophy. The ventricles are dilated out of proportion to the sulcal widening which suggests normal pressure hydrocephalus. 2. An acute area of hemorrhage or mass effect is not seen. MD Florentin Burdicki VTE Risk Assessment Caprini VTE Risk Assessment: No/Low Risk (score <= 1) Caprini Risk Assessment Model Point Value = 1 Point Value = 2 Point Value = 3 Point Value = 5 Age 41-60 Minor surgery BMI > 25 kg/m2 Swollen legs Varicose veins or History of unexplained or recurrent spontaneous Oral contraceptives or hormone replacement Sepsis (< 1 month) Serious lung disease, including pneumonia (< 1 month) Abnormal pulmonary function Acute myocardial infarction Congestive heart failure (< 1 month) History of inflammatory bowel disease Medical patient at bed rest Age 61-74 Arthroscopic surgery Major open surgery (> 45 min) Laparoscopic surgery (> 45 min) Malignancy Confined to bed (> 72 hours) Immobilizing plaster cast Central venous access Age >= 75 History of VTE Family history of VTE Factor V Leiden Prothrombin [id number] Lupus anticoagulant Anticardiolipin antibodies Elevated serum homocysteine Heparin-induced thrombocytopenia Other congenital or acquired thrombophilia Stroke (< 1 month) Elective arthroplasty Hip, pelvis, or leg fracture Acute spinal cord injury (< 1 month) Prophylaxis Regimen Total Risk Factor Score Risk Level Prophylaxis Regimen 0-1 Low Early ambulation 2 Moderate Order ONE of the following: *Sequential Compression Device (SCD) *Heparin 5000 units SQ BID 3-4 Higher Order ONE of the following medications: *Heparin 5000 units SQ TID *Enoxaparin/Lovenox 40 mg SQ daily (WT < 150 kg, CrCl > 30 mL/min) *Enoxaparin/Lovenox 30 mg SQ daily (WT < 150 kg, CrCl > 10-29 mL/min) *Enoxaparin/Lovenox 30 mg SQ BID (WT < 150 kg, CrCl > 30 mL/min) AND/OR *Sequential Compression Device (SCD) 5 or more Highest Order ONE of the following medications: *Heparin 5000 units SQ TID (Preferred with Epidurals) *Enoxaparin/Lovenox 40 mg SQ daily (WT < 150 kg, CrCl > 30 mL/min) *Enoxaparin/Lovenox 30 mg SQ daily (WT < 150 kg, CrCl > 10-29 mL/min) *Enoxaparin/Lovenox 30 mg SQ BID (WT < 150 kg, CrCl > 30 mL/min) AND *Sequential Compression Device (SCD) Assessment and Plan Problem List: (1) Dementia ICD Codes: F03.90 - Unspecified dementia without behavioral disturbance Status: Chronic Plan: Will continue patient on home Aricept Case management working to find safe discharge and placement Pt requested DVT prophylaxis with SCDs (2) UTI (urinary tract infection) ICD Codes: N39.0 - Urinary tract infection, site not specified Status: Acute Plan: Patient given Rocephin IV then started on Keflex in ER will continue Keflex for a total of 7 days Await urine culture results (3) Hypertension ICD Codes: I10 - Essential (primary) hypertension Status: Acute Plan: Patient has not been receiving her home medication will resume patient's home lisinorpl 20 mg PO BID and nifedipine 30 MG PO BID add clonidine as needed monitor BP Assessment and Plan Patient examined. Assessment and plan formulated with Marie Valentin PA-C. I agree with the above. Problem Qualifiers (1) Dementia: Qualified Codes: F03.90 - Unspecified dementia without behavioral disturbance (2) UTI (urinary tract infection): Qualified Codes: N30.00 - Acute cystitis without hematuria Marie Valentin Oct 06, 2017 16:21 Sotero Elder DO Oct 07, 2017 12:28
[2017-10-06] MEDS ORDERED: NIFEdipine 30 MG SUSTAINED RELEASE TAB PO ONE (17:00)
[2017-10-06] MEDS: CEPHALEXIN MONOHYDRATE 500 MG CAP PO SCH (18:11)
[2017-10-06] MEDS: NIFEdipine 30 MG SUSTAINED RELEASE TAB PO SCH (22:24)
[2017-10-06] MEDS: DONEPEZIL HCL 5 MG TAB PO SCH (22:25)
[2017-10-06] MEDS: LISINOPRIL 20 MG TAB PO SCH (22:25)
[2017-10-06] MEDS: SODIUM CHLORIDE 0.9% FLUSH 10 ML FLUSH IV FLUSH SCH (22:25)
[2017-10-07] VITALS (7 sets, daily range): BP systolic 107–204; BP diastolic 63–114; PULSE 54–111; RESP 14–17; TEMP 97.4–98.5; O2SAT 97–100
[2017-10-07] MEDS: CEPHALEXIN MONOHYDRATE 500 MG CAP PO SCH ×2 (06:42→17:49)
[2017-10-07] MEDS: LEVOTHYROXINE SODIUM 25 MCG TAB PO SCH (06:42)
[2017-10-07 07:08] LABS: AUTOMATED NEUTROPHIL # 7.2 TH/MM3 (1.8-7.7); BASOPHIL % 0.2 % (0.0-2.0); EOSINOPHIL % 0.2 % (0.0-4.0); HEMATOCRIT 35.6 % (35.0-46.0); HEMOGLOBIN 11.4 GM/DL (11.6-15.3); LYMPHOCYTE # 0.9 TH/MM3 (1.0-4.8); MEAN CELL VOLUME 71.9 FL (80.0-100.0); MEAN CORPUSCULAR HGB CONC 32.1 % (32.0-36.0); MEAN PLATELET VOLUME 7.6 FL (7.0-11.0); MONOCYTE # 0.3 TH/MM3 (0-0.9); NEUT % 84.6 % (16.0-70.0); PLATELET COUNT 216 TH/MM3 (150-450); RED BLOOD COUNT 4.96 MIL/MM3 (4.00-5.30); RED CELL DISTRIBUTION WIDTH 15.9 % (11.6-17.2); WHITE BLOOD COUNT 8.5 TH/MM3 (4.0-11.0)
[2017-10-07 07:25] LABS: BICARBONATE 28.1 MEQ/L (21.0-32.0); CREATININE 0.82 MG/DL (0.50-1.00)
[2017-10-07] MEDS: ASPIRIN EC 81 MG TABEC PO SCH (08:15)
[2017-10-07] MEDS: ATORVASTATIN 40 MG TAB PO SCH (08:15)
[2017-10-07] MEDS: NIFEdipine 30 MG SUSTAINED RELEASE TAB PO SCH ×2 (08:15→21:48)
[2017-10-07] MEDS: LISINOPRIL 20 MG TAB PO SCH ×2 (08:16→21:48)
[2017-10-07] MEDS: SODIUM CHLORIDE 0.9% FLUSH 10 ML FLUSH IV FLUSH SCH ×2 (08:16→21:00)
[2017-10-07] MEDS ORDERED: CLON.2 PO (11:51)
[2017-10-07] MEDS ORDERED: CEPH500C PO (11:51)
--- NOTE | 2017-10-07 12:28 | HHI.DCPOC ---
Discharge Care Plan Diagnosis: (1) Dementia (2) UTI (urinary tract infection) (3) Hypertension Goals to Promote Your Health * To prevent worsening of your condition and complications * To maintain your health at the optimal level Directions to Meet Your Goals Take your medications as prescribed Follow your dietary instruction Follow activity as directed Keep your appointments as scheduled Take your immunizations and boosters as scheduled If your symptoms worsen call your PCP, if no PCP go to Urgent Care Center or Emergency Room Smoking is Dangerous to Your Health. Avoid second hand smoke Call the 24-hour hour crisis hotline for domestic abuse at Sotero Elder DO Oct 07, 2017 12:28
--- NOTE | 2017-10-07 12:31 | HHI.PR ---
Subjective Remarks No new complaints. Objective Vitals Vital Signs Date Time Temp Pulse Resp B/P (MAP) Pulse Ox O2 Delivery O2 Flow Rate FiO2 10/07/17 12:24 97.8 59 14 204/86 (125) 100 10/07/17 07:19 97.4 54 14 155/69 (97) 100 10/07/17 05:29 97.9 68 16 138/72 (94) 97 10/07/17 00:38 98.1 54 17 107/63 (78) 97 10/06/17 19:59 98.0 58 17 181/84 (116) 100 10/06/17 19:28 55 16 164/76 (105) 99 10/06/17 18:39 72 16 215/86 (129) 96 10/06/17 18:00 223/100 (141) 10/06/17 15:46 47 12 210/95 (133) 100 Result Diagram: 10/07/17 0643 10/07/17 0643 Imaging Last Impressions Chest X-Ray 10/06/17 1550 Signed Impressions: Service Date/Time: Friday, October 06, 2017 15:57 - CONCLUSION: No acute disease. There is no evidence of pneumonia. Pan Wood MD Head CT 10/05/17 0000 Signed Impressions: Service Date/Time: September 22:46 - CONCLUSION: 1. Atrophy. The ventricles are dilated out of proportion to the sulcal widening which suggests normal pressure hydrocephalus. 2. An acute area of hemorrhage or mass effect is not seen. Vishal Moreland MD Objective Remarks GENERAL: This is a well-nourished, well-developed patient, in no apparent distress. CARDIOVASCULAR: Regular rate and rhythm without murmurs, gallops, or rubs. RESPIRATORY: Clear to auscultation. Breath sounds equal bilaterally. No wheezes , rales, or rhonchi. GASTROINTESTINAL: Abdomen soft, non-tender, nondistended. Normal active bowel sounds MUSCULOSKELETAL: Extremities without clubbing, cyanosis, or edema. NEURO: Alert & Oriented to self only. SUTTON A/P Problem List: (1) Dementia ICD Codes: F03.90 - Unspecified dementia without behavioral disturbance Status: Chronic Plan: - aricept - supportive care - D/C to SNF or [facility] - supportive care (2) UTI (urinary tract infection) ICD Codes: N39.0 - Urinary tract infection, site not specified Status: Acute Plan: Patient given Rocephin IV then started on Keflex in ER will continue Keflex for a total of 7 days (3) Hypertension ICD Codes: I10 - Essential (primary) hypertension Status: Acute Plan: Patient has not been receiving her home medication - resumed lisinorpl 20 mg PO BID and nifedipine 30 MG PO BID add clonidine as needed monitor BP Problem Qualifiers (1) Dementia: Qualified Codes: F03.90 - Unspecified dementia without behavioral disturbance (2) UTI (urinary tract infection): Qualified Codes: N30.00 - Acute cystitis without hematuria Sotero Elder DO Oct 07, 2017 12:31
[2017-10-07] MEDS: cloNIDine HCL 0.2 MG TAB PO PRN ×2 (12:37→21:47)
--- NOTE | 2017-10-07 14:50 | EKG ---
Date Performed: 10/06/2017 Time Performed: 18:24:09 PTAGE: 87 years EKG: SINUS BRADYCARDIA PROLONGED QT INTERVAL ABNORMAL ECG Since PREVIOUS TRACING , no significant change noted PREVIOUS TRACIN02/13/2017 19.43 DOCTOR: Jonh Caceres Interpretating Date/Time 10/07/2017 14:48:20
[2017-10-07] MEDS: DONEPEZIL HCL 5 MG TAB PO SCH (21:47)
[2017-10-07] MEDS ORDERED: HALOPERIDOL LACTATE 5 MG/ML AMP IM ONE (22:15)
[2017-10-07] MEDS ORDERED: diphenhydrAMINE HCL 25 MG CAP PO PRN (22:15)
[2017-10-08 03:21] VITALS: BP 102/66; PULSE 55; RESP 16; O2SAT 99
[2017-10-08] MEDS: CEPHALEXIN MONOHYDRATE 500 MG CAP PO SCH (06:00)
[2017-10-08] MEDS: LEVOTHYROXINE SODIUM 25 MCG TAB PO SCH (06:00)
[2017-10-08 08:31] VITALS: BP 109/83; PULSE 61; RESP 14; TEMP 97.8; O2SAT 98
[2017-10-08] MEDS: SODIUM CHLORIDE 0.9% FLUSH 10 ML FLUSH IV FLUSH SCH ×2 (08:33→21:00)
[2017-10-08] MEDS: ASPIRIN EC 81 MG TABEC PO SCH (08:37)
[2017-10-08] MEDS: LISINOPRIL 20 MG TAB PO SCH ×2 (08:37→23:24)
[2017-10-08] MEDS: ATORVASTATIN 40 MG TAB PO SCH (08:37)
[2017-10-08] MEDS: NIFEdipine 30 MG SUSTAINED RELEASE TAB PO SCH ×2 (08:38→23:24)
--- NOTE | 2017-10-08 10:51 | HHI.PR ---
Subjective Remarks Patient in no acute distress offers no specific complaints remains pleasantly confused Objective Vitals Vital Signs Date Time Temp Pulse Resp B/P (MAP) Pulse Ox O2 Delivery O2 Flow Rate FiO2 10/08/17 08:31 97.8 61 14 109/83 (92) 98 10/08/17 03:21 55 16 102/66 (78) 99 10/07/17 23:36 98.5 74 16 164/83 (110) 99 10/07/17 21:02 98.5 111 16 198/114 (142) 98 10/07/17 15:56 98.2 72 14 161/79 (106) 99 10/07/17 12:24 97.8 59 14 204/86 (125) 100 10/08/17 10/08/17 10/09/17 15:00 23:00 07:00 # Voids 1 Result Diagram: 10/07/17 0643 10/07/17 0643 Other Results Laboratory Tests Test 10/05/17 22:10 10/05/17 22:20 10/06/17 00:10 10/07/17 06:43 White Blood Count 8.1 TH/MM3 8.5 TH/MM3 Red Blood Count 4.58 MIL/MM3 4.96 MIL/MM3 Hemoglobin 10.6 GM/DL 11.4 GM/DL Hematocrit 33.1 % 35.6 % Mean Corpuscular Volume 72.2 FL 71.9 FL Mean Corpuscular Hemoglobin 23.2 PG 23.0 PG Mean Corpuscular Hemoglobin Concent 32.2 % 32.1 % Red Cell Distribution Width 16.3 % 15.9 % Platelet Count 235 TH/MM3 216 TH/MM3 Mean Platelet Volume 7.6 FL 7.6 FL Neutrophils (%) (Auto) 56.1 % 84.6 % Lymphocytes (%) (Auto) 31.0 % 11.0 % Monocytes (%) (Auto) 11.1 % 4.0 % Eosinophils (%) (Auto) 1.0 % 0.2 % Basophils (%) (Auto) 0.8 % 0.2 % Neutrophils # (Auto) 4.5 TH/MM3 7.2 TH/MM3 Lymphocytes # (Auto) 2.5 TH/MM3 0.9 TH/MM3 Monocytes # (Auto) 0.9 TH/MM3 0.3 TH/MM3 Eosinophils # (Auto) 0.1 TH/MM3 0.0 TH/MM3 Basophils # (Auto) 0.1 TH/MM3 0.0 TH/MM3 CBC Comment DIFF FINAL DIFF FINAL Differential Comment Blood Urea Nitrogen 28 MG/DL 16 MG/DL Creatinine 1.19 MG/DL 0.82 MG/DL Random Glucose 146 MG/DL 133 MG/DL Total Protein 9.0 GM/DL Albumin 4.2 GM/DL Calcium Level 9.5 MG/DL 9.0 MG/DL Alkaline Phosphatase 63 U/L Aspartate Amino Transf (AST/SGOT) 23 U/L Alanine Aminotransferase (ALT/SGPT) 15 U/L Total Bilirubin 0.6 MG/DL Sodium Level 142 MEQ/L 136 MEQ/L Potassium Level 3.4 MEQ/L 3.8 MEQ/L Chloride Level 105 MEQ/L 100 MEQ/L Carbon Dioxide Level 29.2 MEQ/L 28.1 MEQ/L Anion Gap 8 MEQ/L 8 MEQ/L Estimat Glomerular Filtration Rate 52 ML/MIN 80 ML/MIN Salicylates Level 3.1 MG/DL Acetaminophen Level LESS THAN 2.0 MCG/ML Ethyl Alcohol Level LESS THAN 3 MG/DL Prothrombin Time 10.8 SEC Prothromb Time International Ratio 1.1 RATIO Activated Partial Thromboplast Time 21.9 SEC Urine Color YELLOW Urine Turbidity CLEAR Urine pH 5.5 Urine Specific [place] 1.029 Urine Protein 30 mg/dL Urine Glucose (UA) NEG mg/dL Urine Ketones NEG mg/dL Urine Occult Blood TRACE Urine Nitrite NEG Urine Bilirubin NEG Urine Urobilinogen LESS THAN 2.0 MG/DL Urine Leukocyte Esterase LARGE Urine RBC 7 /hpf Urine WBC 17 /hpf Urine Squamous Epithelial Cells 3 /hpf Urine Bacteria RARE /hpf Urine Hyaline Casts 12 /lpf Urine Mucus FEW /lpf Microscopic Urinalysis Comment CULTURE INDICATED Urine Opiates Screen NEG Urine Barbiturates Screen NEG Urine Amphetamines Screen NEG Urine Benzodiazepines Screen NEG Urine Cocaine Screen NEG Urine Cannabinoids Screen NEG Imaging Last Impressions Chest X-Ray 10/06/17 1550 Signed Impressions: Service Date/Time: Friday, October 06, 2017 15:57 - CONCLUSION: No acute disease. There is no evidence of pneumonia. Pan Wood MD Head CT 10/05/17 0000 Signed Impressions: Service Date/Time: September 22:46 - CONCLUSION: 1. Atrophy. The ventricles are dilated out of proportion to the sulcal widening which suggests normal pressure hydrocephalus. 2. An acute area of hemorrhage or mass effect is not seen. Vishal Moreland MD Objective Remarks GENERAL: This is a well-nourished, well-developed patient, in no apparent distress. CARDIOVASCULAR: Regular rate and rhythm RESPIRATORY: Clear to auscultation. Breath sounds equal bilaterally. No wheezes , rales, or rhonchi. GASTROINTESTINAL: Abdomen soft, non-tender, nondistended. Normal active bowel sounds MUSCULOSKELETAL: Extremities without clubbing, cyanosis, or edema. NEURO: Alert & Oriented to self only. SUTTON A/P Problem List: (1) Dementia ICD Codes: F03.90 - Unspecified dementia without behavioral disturbance Status: Chronic Plan: - aricept - supportive care - D/C to SNF or [facility] - supportive care - consult palliative care for assistance - DVT prophylaxis SCDs while in bed patient ambulates frequently Patient medically stable for DC awaiting safe placement (2) UTI (urinary tract infection) ICD Codes: N39.0 - Urinary tract infection, site not specified Status: Resolved Plan: Patient given Rocephin IV then started on Keflex in ER Urine culture reveals: 50, 000- 100, 000 mixed gram positive andreia will DC Keflex (3) Hypertension ICD Codes: I10 - Essential (primary) hypertension Status: Acute Plan: Patient has not been receiving her home medication - resumed lisinorpl 20 mg PO BID and nifedipine 30 MG PO BID add clonidine as needed monitor BP Assessment and Plan Patient examined. Assessment and plan formulated with Marie Valentin PA-C. I agree with the above. Problem Qualifiers (1) Dementia: Qualified Codes: F03.90 - Unspecified dementia without behavioral disturbance (2) UTI (urinary tract infection): Qualified Codes: N30.00 - Acute cystitis without hematuria Marie Valentin Oct 08, 2017 10:51 Sotero Elder DO Oct 12, 2017 11:30
[2017-10-08 13:21] VITALS: BP 164/71; PULSE 51; RESP 14; TEMP 98; O2SAT 98
[2017-10-08 20:00] VITALS: BP 166/72; PULSE 78; RESP 18; TEMP 98; O2SAT 100
[2017-10-08] MEDS: DONEPEZIL HCL 5 MG TAB PO SCH (23:25)
[2017-10-09] VITALS: BP 167/78; PULSE 74; RESP 18; TEMP 98; O2SAT 100
[2017-10-09] MEDS: LEVOTHYROXINE SODIUM 25 MCG TAB PO SCH (06:43)
--- NOTE | 2017-10-09 07:19 | HHI.PR ---
Subjective Remarks Patient offers no concerns/complaints remains pleasantly confused Objective Vitals Vital Signs Date Time Temp Pulse Resp B/P (MAP) Pulse Ox O2 Delivery O2 Flow Rate FiO2 10/09/17 00:00 98.0 74 18 167/78 (107) 100 10/08/17 20:00 98.0 78 18 166/72 (103) 100 10/08/17 13:21 98.0 51 14 164/71 (102) 98 10/08/17 08:31 97.8 61 14 109/83 (92) 98 Result Diagram: 10/07/17 0643 10/07/17 0643 Other Results Laboratory Tests Test 10/07/17 06:43 White Blood Count 8.5 TH/MM3 Red Blood Count 4.96 MIL/MM3 Hemoglobin 11.4 GM/DL Hematocrit 35.6 % Mean Corpuscular Volume 71.9 FL Mean Corpuscular Hemoglobin 23.0 PG Mean Corpuscular Hemoglobin Concent 32.1 % Red Cell Distribution Width 15.9 % Platelet Count 216 TH/MM3 Mean Platelet Volume 7.6 FL Neutrophils (%) (Auto) 84.6 % Lymphocytes (%) (Auto) 11.0 % Monocytes (%) (Auto) 4.0 % Eosinophils (%) (Auto) 0.2 % Basophils (%) (Auto) 0.2 % Neutrophils # (Auto) 7.2 TH/MM3 Lymphocytes # (Auto) 0.9 TH/MM3 Monocytes # (Auto) 0.3 TH/MM3 Eosinophils # (Auto) 0.0 TH/MM3 Basophils # (Auto) 0.0 TH/MM3 CBC Comment DIFF FINAL Differential Comment Blood Urea Nitrogen 16 MG/DL Creatinine 0.82 MG/DL Random Glucose 133 MG/DL Calcium Level 9.0 MG/DL Sodium Level 136 MEQ/L Potassium Level 3.8 MEQ/L Chloride Level 100 MEQ/L Carbon Dioxide Level 28.1 MEQ/L Anion Gap 8 MEQ/L Estimat Glomerular Filtration Rate 80 ML/MIN Imaging Last Impressions Chest X-Ray 10/06/17 1550 Signed Impressions: Service Date/Time: Friday, October 06, 2017 15:57 - CONCLUSION: No acute disease. There is no evidence of pneumonia. Pan Wood MD Head CT 10/05/17 0000 Signed Impressions: Service Date/Time: September 22:46 - CONCLUSION: 1. Atrophy. The ventricles are dilated out of proportion to the sulcal widening which suggests normal pressure hydrocephalus. 2. An acute area of hemorrhage or mass effect is not seen. Vishal Moreland MD Objective Remarks GENERAL: This is a well-nourished, well-developed patient, in no apparent distress. CARDIOVASCULAR: Regular rate and rhythm RESPIRATORY: Clear to auscultation. Breath sounds equal bilaterally. No wheezes , rales, or rhonchi. GASTROINTESTINAL: Abdomen soft, non-tender, nondistended. Normal active bowel sounds MUSCULOSKELETAL: Extremities without clubbing, cyanosis, or edema. NEURO: Alert & Oriented to self only. SUTTON A/P Problem List: (1) Dementia ICD Codes: F03.90 - Unspecified dementia without behavioral disturbance Status: Chronic Plan: - aricept - D/C to SNF or [facility] - supportive care - consult palliative care for assistance - DVT prophylaxis SCDs while in bed patient ambulates frequently Patient medically stable for DC awaiting safe placement (2) UTI (urinary tract infection) ICD Codes: N39.0 - Urinary tract infection, site not specified Status: Acute Plan: Patient given Rocephin IV then started on Keflex in ER Urine culture reveals: 50, 000- 100, 000 mixed gram positive andreia DC Keflex (3) Hypertension ICD Codes: I10 - Essential (primary) hypertension Status: Acute Plan: Patient has not been receiving her home medication - resumed lisinorpl 20 mg PO BID and nifedipine 30 MG PO BID add clonidine as needed monitor BP Assessment and Plan Patient examined. Assessment and plan formulated with Marie Valentin PA-C. I agree with the above. medically stable. awaiting placement. Problem Qualifiers (1) Dementia: Qualified Codes: F03.90 - Unspecified dementia without behavioral disturbance (2) UTI (urinary tract infection): Qualified Codes: N30.00 - Acute cystitis without hematuria Marie Valentin Oct 09, 2017 07:19 Luis Herrera MD Oct 09, 2017 12:59
[2017-10-09 07:25] VITALS: BP 164/78; PULSE 76; RESP 14; TEMP 97.5; O2SAT 99
[2017-10-09] MEDS: ATORVASTATIN 40 MG TAB PO SCH (09:00)
[2017-10-09] MEDS: LISINOPRIL 20 MG TAB PO SCH ×2 (09:00→21:00)
[2017-10-09] MEDS: ASPIRIN EC 81 MG TABEC PO SCH (09:00)
[2017-10-09] MEDS: SODIUM CHLORIDE 0.9% FLUSH 10 ML FLUSH IV FLUSH SCH ×2 (09:00→21:00)
[2017-10-09] MEDS: NIFEdipine 30 MG SUSTAINED RELEASE TAB PO SCH ×2 (09:00→21:00)
--- NOTE | 2017-10-09 11:09 | PD.CONS ---
Consult Service Palliative Care Consult Requested By Dr. Elder Primary Care Physician Unknown Reason for Consultation a. To assist with evaluation and management of symptoms including: confusion b. To assist medical decision maker(s) with: better understanding of current medical conditions; weighing benefits/burdens of medical treatment options; making medical treatment decisions. (Donna Desai) HPI History of Present Illness This 87-year-old female presented to the ED on 10/05 under a Cortez act. She was apparently out at a restaurant with friends and was not acting herself, she did not remember where she was or why she was there which was not her baseline. The police were called and the patient was Cortez acted, brought to the ED. At presentation patient noted to be pleasant, reporting that she is here because she has not been to the doctor on a while and they wanted her to get checked. Denies pain, or any other symptoms or acute medical issues. * No focal deficits noted during ED examination. She was awake and oriented to self and hospital. Hypertensive 229/97. Urine drug analysis negative. Urine positive UTI. ED physician notes patient does not appear to be a threat to herself or others she is alert, pleasantly confused. She is cooperative. Cortez act lifted. CT brain negative for acute process. CXR with no acute process. Planned for discharge home with family, with antibiotics for UTI. Case management assisting with discharge arrangements. Case management reporting that patient unable to be discharged home with family apparently DCF may be involved. Planned for possible discharge to SNF for rehabilitation however unable to find accepting facility due to dementia. Seen in room no visitors present. She is curled up sleeping though she arouses some to verbal. She is oriented to self, able to name her family members and where some of them live. However she tells me that she is at home on [facility] , explained she is in the hospital she does not agree with this. Attempted ROS , all the questions I asked her she replied "no" she denies pain, any GI discomfort and urinary discomfort, any joint or bone discomfort. She has not eaten breakfast yet I asked her if she is hungry she says no. She goes back to sleep upon completion of my exam. She is very thin, frail-appearing though per recorded weights in EMR appears weights have been same/stable since around 2012 pain. She is in no distress. Nursing reports she refused to take her medication. When I asked her about this she is not able to tell me why. Discussed with primary nurse no family has been in, her children live out of state. Discussed with case management who over the weekend had been in communication with patient family. Daughter was here over the weekend to secure patient's house. Daughter working on local placement for patient in a facility that is locked, otherwise she has indicated she may take her back up to [place] with her. There is no further DCF investigation pending per case management. Following my exam attempted to call daughter, voicemail left with palliative contact information. Patient daughter called back later spoke with her via phone, see family conference. . Function/Cognitive Trajectory Apparently lived at home alone most recently with neighbors and episcopalian members checking in on her and helping with driving as needed. Ambulatory. Recently DCF was called as patient was found wandering in her neighborhood. Verbal. At times partially to mostly oriented. Weight appears stable compared to 2013 admission. . (Donna Desai) Review of Systems ROS Limitations: Poor Historian (poor historian, hx dementia, denies any complaints) Constitutional: DENIES: Change in appetite Respiratory: DENIES: Cough, Sputum production, Shortness of breath Cardiovascular: DENIES: Chest pain Gastrointestinal: DENIES: Abdominal pain, Diarrhea, Nausea, Vomiting, Difficulty Swallowing Genitourinary: DENIES: Hematuria, Dysuria Musculoskeletal: DENIES: Joint pain, Back pain Integumentary: DENIES: Rash (Donna Desai) Past Family Social History Coded Allergies: penicillin G (Unverified Allergy, Mild, HIVES, 10/05/17) Past Medical History Dementia Atrial fibrillation-(Coumadin DC'd July 2016 secondary to concerns with fall risk, noncompliance) Anxiety CAD Hypertension Osteoporosis Osteoarthritis Headaches Kidney stone . Past Surgical History Heart valve replacement-AVR 2012 Renal calculi removal Cholecystectomy Cardiac [id number] 2012 . Reported Medications Meclizine Hcl (Meclizine HCl) 25 Mg Tab 25 Mg PO TID PRN Nifedipine ER 24 HR (Nifedipine) 30 Mg Tab 30 Mg PO BID Lisinopril 20 Mg Tab 20 Mg PO Q12HR Levothyroxine (Levothyroxine Sodium) 25 Mcg Tab 25 Mcg PO DAILY@0600 Aricept (Donepezil HCl) 5 Mg Tablet 10 Mg PO HS Adult Aspirin EC Low Strength (Aspirin) 81 Mg Tabec 81 Mg PO DAILY Atorvastatin (Atorvastatin Calcium) 40 Mg Tab 40 Mg PO DAILY Warfarin Sodium 5 mg (Warfarin Sodium) 5 Mg Tab 1 Tab PO DAILY Coreg 12.5 mg (Carvedilol) 12.5 Mg Tab 12.5 Mg PO BID Amlodipine Besylate 10 Mg Tab 10 Mg PO BID Lipitor (Atorvastatin Calcium) 80 Mg Tab 80 Mg PO HS Tambocor 150 mg (Flecainide Acetate) 150 Mg Tab 75 Mg PO BID . Current Medications Medications (Trade) Dose Ordered Sig/Merari Route Start Time Stop Time Status Last Admin (NS Flush) 2 ml UNSCH PRN IV FLUSH 10/06/17 16:00 (NS Flush) 2 ml BID IV FLUSH 10/06/17 21:00 10/07/17 08:16 (Tylenol) 650 mg Q4H PRN PO 10/06/17 16:00 (Zofran Inj) 4 mg Q6H PRN IVP 10/06/17 16:00 (Narcan Inj) 0.4 mg UNSCH PRN IV PUSH 10/06/17 16:00 (Milk Of Goodie Goodie Applaure Liq) 30 ml Q12H PRN PO 10/06/17 16:00 (Ecotrin Ec) 81 mg DAILY PO 10/07/17 09:00 10/07/17 08:15 (Lipitor) 40 mg DAILY PO 10/07/17 09:00 10/07/17 08:15 (Aricept) 10 mg HS PO 10/06/17 21:00 10/08/17 23:25 (Synthroid) 25 mcg DAILY@0600 PO 10/07/17 06:00 10/09/17 06:43 (Prinivil) 20 mg Q12HR PO 10/06/17 21:00 10/08/17 23:24 (Procardia Xl) 30 mg BID PO 10/06/17 21:00 10/08/17 23:24 (Catapres) 0.2 mg Q6H PRN PO 10/06/17 17:45 10/07/17 21:47 Family History Per EMR 2012 mother at age 35 secondary to drowning, father's history is not known. One brother secondary to alcohol issues Substance Use per EMR Tobacco: Non-smoker Alcohol: None Prescription med abuse: None Illicits: None . Psychosocial History Per review of EMR patient is , lives alone. Retired, former [employer] here at [facility] for many years. has 2 children who live out of state. Local episcopalian members and neighbors generally looked out for her. Apparently they recently had called DCF due to finding the patient wandering in the neighborhood in her undergarments. Per review of EMR during admission February 2017 it was recommended consider [facility] for placement. At that time patient was apparently not accepted back to [facility] due to patient kept trying to leave the facility and the facility offered assistance to find a secured unit. Patient daughter at that time elected to bring her home. Another hospital visit to the ER March 2017 notes patient cooperative, mildly confused [id number] called the police due to an argument, patient discharged, family at that time requested facility placement-which could not be done through the emergency department, she was discharged home with neighbors. (Donna Desai) Living Will: Copy in medical record Health Care Surrogate: Copy in medical record (No witnesses to this document) Date completed: 2012 Health Care Surrogate(s): Ginna Almodovar [facility] per living will document Documented care wishes: Living will only names healthcare surrogate Ginna Almodovar, no other specific care requests written. Ethical and Legal Issues Patient with dementia. She has a daughter who is designated healthcare surrogate. There is some report of recent DCF involvement I am not certain this disqualifies her family as healthcare surrogate- per discussion w CM, DCF was only called due to pt found wandering. Appears patient has needed placement since at least last year due to dementia. Appears at this time designated healthcare surrogate daughter Ginna Almodovar would be appropriate legal decision maker. Patient may be able to participate in decision-making, reported to be partially oriented at times. . (Donna Desai) Physical Exam Vital Signs Date Time Temp Pulse Resp B/P (MAP) Pulse Ox O2 Delivery O2 Flow Rate FiO2 10/09/17 07:25 97.5 76 14 164/78 (106) 99 10/09/17 00:00 98.0 74 18 167/78 (107) 100 10/08/17 20:00 98.0 78 18 166/72 (103) 100 10/08/17 13:21 98.0 51 14 164/71 (102) 98 Exam CONSTITUTIONAL/GENERAL: This is a thin, elderly female TUBES/LINES/DRAINS: PIV upper extremity SKIN: No jaundice, rashes, or lesions. +multiple skin growths/keratosis? to left face. No wounds seen anteriorly. Skin temperature appropriate. Not diaphoretic. HEAD: Atraumatic. Normocephalic. EYES: Pupils equal and round and reactive. Extraocular motions intact. No scleral icterus. No injection or drainage. Fundi not examined. ENT: Nose without bleeding or purulent drainage. Throat without visible erythema , exudates, masses, or lesions. NECK: Trachea midline. Supple, nontender. No palpable thyroid enlargement or nodularity. CARDIOVASCULAR: Regular rate and rhythm without murmur. Peripheral pulses symmetric. RESPIRATORY/CHEST: Symmetric, unlabored respirations on room air. Clear to auscultation. Breath sounds equal bilaterally. GASTROINTESTINAL: Abdomen soft,flat, non-tender, nondistended. No hepato- splenomegaly, or palpable masses. No guarding. Bowel sounds present. GENITOURINARY: Without palpable bladder distension. Francis catheter in place dark yellow urine present. MUSCULOSKELETAL: Extremities without clubbing, cyanosis, or edema. Remedies very thin with muscle atrophy present. LYMPHATICS: No palpable cervical or supraclavicular adenopathy. NEUROLOGICAL: Lethargic, sleeping arouses to verbal. Partially oriented to self , family. Confused hospital, reason for hospitalization. She does follow simple commands. Moves all 4 extremities. PSYCHIATRIC: No obvious anxiety/depression. no apparent hallucinations or other psychotic thought process. (Donna Desai) Diagnostic Tests Laboratory Laboratory Tests Test 10/07/17 06:43 White Blood Count 8.5 TH/MM3 (4.0-11.0) Red Blood Count 4.96 MIL/MM3 (4.00-5.30) Hemoglobin 11.4 GM/DL (11.6-15.3) Hematocrit 35.6 % (35.0-46.0) Mean Corpuscular Volume 71.9 FL (80.0-100.0) Mean Corpuscular Hemoglobin 23.0 PG (27.0-34.0) Mean Corpuscular Hemoglobin Concent 32.1 % (32.0-36.0) Red Cell Distribution Width 15.9 % (11.6-17.2) Platelet Count 216 TH/MM3 (150-450) Mean Platelet Volume 7.6 FL (7.0-11.0) Neutrophils (%) (Auto) 84.6 % (16.0-70.0) Lymphocytes (%) (Auto) 11.0 % (9.0-44.0) Monocytes (%) (Auto) 4.0 % (0.0-8.0) Eosinophils (%) (Auto) 0.2 % (0.0-4.0) Basophils (%) (Auto) 0.2 % (0.0-2.0) Neutrophils # (Auto) 7.2 TH/MM3 (1.8-7.7) Lymphocytes # (Auto) 0.9 TH/MM3 (1.0-4.8) Monocytes # (Auto) 0.3 TH/MM3 (0-0.9) Eosinophils # (Auto) 0.0 TH/MM3 (0-0.4) Basophils # (Auto) 0.0 TH/MM3 (0-0.2) CBC Comment DIFF FINAL Differential Comment Blood Urea Nitrogen 16 MG/DL (7-18) Creatinine 0.82 MG/DL (0.50-1.00) Random Glucose 133 MG/DL (74-106) Calcium Level 9.0 MG/DL (8.5-10.1) Sodium Level 136 MEQ/L (136-145) Potassium Level 3.8 MEQ/L (3.5-5.1) Chloride Level 100 MEQ/L (98-107) Carbon Dioxide Level 28.1 MEQ/L (21.0-32.0) Anion Gap 8 MEQ/L (5-15) Estimat Glomerular Filtration Rate 80 ML/MIN (>89) (Donna Desai [facility]) Result Diagram: 10/07/17 0643 10/07/17 0643 Microbiology Microbiology Date/Time Source Procedure Growth Status 10/06/17 00:10 Urine Random Urine Urine Culture - Final 50-100,000 CFU/ML MIXED GRAM POSITIVE... Complete Imaging Last Impressions Chest X-Ray 10/06/17 1550 Signed Impressions: Service Date/Time: Friday, October 06, 2017 15:57 - CONCLUSION: No acute disease. There is no evidence of pneumonia. Pan Wood MD Head CT 10/05/17 0000 Signed Impressions: Service Date/Time: September 22:46 - CONCLUSION: 1. Atrophy. The ventricles are dilated out of proportion to the sulcal widening which suggests normal pressure hydrocephalus. 2. An acute area of hemorrhage or mass effect is not seen. Vishal Moreland MD (Donna Desai) Patient/Family Conference Family Conference Location: Telephone Issues Discussed: voicemail left for daughter today. Daughter later called back discussion included the following: * Palliative care role, purpose, approach * Additional medical, psychosocial, and spiritual history * Patients general health, functional status, and cognitive changes in the months leading up to the current hospitalization * Patient/family understanding of the current medical problems; review of progressive nature of dementia and the patient dementia is not end-stage now review of some of the end-stage dementia processes including recurrent infections, worsening debility, dysphasia, and bound status etc. * Patient/family understanding of prognosis * Patients goals of care as best understood from advance directives and/or conversations and/or values * Current medical treatment options and benefits/burdens of those options * CODE STATUS-she indicates patient has spoken with her about this and she would not want artificial resuscitation measures * Legal decision makers-patient completed healthcare surrogate naming daughter * Questions answered to the best of my ability * Palliative care contact information provided Reviewed with patient daughter patient current condition and treatments in place. She endorses that she talks to patient via phone a few times a day though she last saw her a couple of months ago. She indicates the patient has always been very thin and that her weight is generally about 100 or 110 pounds which is what she is now. She describes mild to moderate dementia;patient able to generally make her needs known, recognizes family members though is very forgetful. She at times is oriented to situation and had been able to live at home with various friends, neighbors, and Meals on Wheels help. She was very ambulatory without assistive devices, had not been having recurrent falls. Eating fairly well her usual appetite. She needed help adhering to her medication regimens. They have been looking into [facility] type placement for her however the patient is a wanderer, and she has wanted to be home. Daughter indicates that she has been in communication with a facility who is currently evaluating her for possible placement. She indicates if this is not possible then she is not certain of what they will do from there they will work on that if needed. Upon review of CODE STATUS she indicates that is something she is spoken about with the patient and that she would not want resuscitation and instead she would want to pass naturally at that time. All questions answered, palliative contact information provided. (Donna Desai) Assessment and Plan Disease Oriented Problem List: (1) UTI (urinary tract infection) (2) Hypothyroidism (3) Hyperlipidemia (4) Dementia (5) Hypertension (6) Atrial fibrillation Symptom Scale: Pertinent Non-Medical Issues Psychosocial: Spiritual: Legal:Patient with mild dementia. She has a daughter who is designated healthcare surrogate. There is some report of recent DCF involvement I am not certain this disqualifies her family as healthcare surrogate. Appears patient has needed placement for some time now due to dementia. Appears at this time designated healthcare surrogate daughter Ginna Almodovar would be appropriate legal decision maker. Patient may be able to participate in decision-making. Ethical issues impacting care: No ethical issues identified. Important Contacts Daughter healthcare surrogate Ginna Almodovar Son Tomas Apodaca [phone] , . Prognosis This patient presented to the ED as a Cortez act for confusion. Cortez act was lifted as she is not felt to be harmful to herself or others. She has dementia , and should be placed in a facility where she can get assistance and not wander. She is being treated for UTI. She should be able to recover from acute issues and returned to most recent baseline status, though she will continue to experience progression of dementia and associated sequelae. Code Status: No Code Plan * Legal decision maker:Patient with mild dementia. She has a daughter who is designated healthcare surrogate. There is some report of recent DCF involvement I am not certain this disqualifies her family as healthcare surrogate. Appears patient has needed placement for some time now due to dementia. Appears at this time designated healthcare surrogate daughter Ginna Almodovar would be appropriate legal decision maker. Patient may be able to participate in decision-making. * Goals: Daughter later called me back, exploration conditions and goals. for now goals aggressive short of resuscitation, daughter hopeful to get her placed in a locked facility setting to better help care for herself, wishes to continue ongoing treatments for acute treatable issues. * CODE STATUS: DNR * SYMPTOMS: --Confusion-patient with underlying dementia. Found wandering in her neighborhood. History of wandering. Dementia will progress patient will have ongoing sequela. Today appears confused, intermittently cooperative intermittently uncooperative. Probably baseline, perhaps exacerbated by acute UTI? * Palliative care will continue to follow during hospital course as condition evolves, to assist patient/decision-maker with understanding of medical conditions, weighing benefits/burdens of treatment options, for clarification of goals of treatment. Additionally will assist with any symptoms of palliative concern (Donna Desai) Thank you for the opportunity to participate in the care of Ms. Osuna. (Donna Desai) Attestation To help prompt me to consider important information that might be impacting today's encounter and assessment, information from prior notes written by myself or my colleagues may have been "brought forward" into today's note. My signature on this note, however, is an attestation that I personally performed the exam, history, and/or decision-making noted today, and, unless otherwise indicated, the interactions with patient, family, and staff as well as the review of records all occurred today. I also attest that the listed assessment and stated plan reflect my best clinical judgment today based on the combination of historical information, prior notes, and today's exam/ interactions. When time spent is documented, it refers only to time spent today by the signer, or if indicated, combined time spent today by collaborating physician/nurse practitioner. (Donna Desai) Collaborating MD Comments Chart reviewed. Case discussed with palliative care SPLICING SUPERVISOR. Above NOHEMI note reviewed and I concur. . (Teo Christian MD) Donna Desai Oct 09, 2017 11:09 eTo Christian MD Oct 16, 2017 05:30
[2017-10-09] MEDS ORDERED: CLON0.1T PO (18:09)
[2017-10-09] MEDS: DONEPEZIL HCL 5 MG TAB PO SCH (21:00)
[2017-10-10] MEDS: LEVOTHYROXINE SODIUM 25 MCG TAB PO SCH (06:00)
--- NOTE | 2017-10-10 07:24 | HHI.PR ---
Subjective Remarks Patient resting in bed offers no complaints Objective Vitals Vital Signs Date Time Temp Pulse Resp B/P (MAP) Pulse Ox O2 Delivery O2 Flow Rate FiO2 10/09/17 12:51 10/09/17 07:25 97.5 76 14 164/78 (106) 99 Result Diagram: 10/07/17 0643 10/07/17 0643 Imaging Last Impressions Chest X-Ray 10/06/17 1550 Signed Impressions: Service Date/Time: Friday, October 06, 2017 15:57 - CONCLUSION: No acute disease. There is no evidence of pneumonia. Pan Wood MD Head CT 10/05/17 0000 Signed Impressions: Service Date/Time: September 22:46 - CONCLUSION: 1. Atrophy. The ventricles are dilated out of proportion to the sulcal widening which suggests normal pressure hydrocephalus. 2. An acute area of hemorrhage or mass effect is not seen. Vishal Moreland MD Objective Remarks GENERAL: This is a well-nourished, well-developed patient, in no apparent distress. CARDIOVASCULAR: Regular rate and rhythm RESPIRATORY: Clear to auscultation. Breath sounds equal bilaterally. No wheezes , rales, or rhonchi. GASTROINTESTINAL: Abdomen soft, non-tender, nondistended. Normal active bowel sounds MUSCULOSKELETAL: Extremities without clubbing, cyanosis, or edema. NEURO: Oriented to self only. SUTTON Procedures none A/P Problem List: (1) Dementia ICD Codes: F03.90 - Unspecified dementia without behavioral disturbance Status: Chronic Plan: - aricept - D/C to SNF or PRISON - supportive care - consult palliative care for assistance - DVT prophylaxis SCDs while in bed patient ambulates frequently Patient medically stable for DC awaiting safe placement Per CM notes patient to be DC'd today to [facility] today (2) UTI (urinary tract infection) ICD Codes: N39.0 - Urinary tract infection, site not specified Status: Resolved Plan: Patient given Rocephin IV then started on Keflex in ER Urine culture reveals: 50, 000- 100, 000 mixed gram positive andreia DC Keflex (3) Hypertension ICD Codes: I10 - Essential (primary) hypertension Status: Acute Plan: Patient has not been receiving her home medication - resumed lisinorpl 20 mg PO BID and nifedipine 30 MG PO BID add clonidine as needed monitor BP Problem Qualifiers (1) Dementia: Qualified Codes: F03.90 - Unspecified dementia without behavioral disturbance (2) UTI (urinary tract infection): Qualified Codes: N30.00 - Acute cystitis without hematuria Marie Valentin Oct 10, 2017 07:24
[2017-10-10 08:43] VITALS: BP 161/77; PULSE 72; RESP 16; TEMP 98.1; O2SAT 98
[2017-10-10] MEDS: SODIUM CHLORIDE 0.9% FLUSH 10 ML FLUSH IV FLUSH SCH (09:00)
[2017-10-10] MEDS: LISINOPRIL 20 MG TAB PO SCH (09:26)
[2017-10-10] MEDS: ATORVASTATIN 40 MG TAB PO SCH (09:26)
[2017-10-10] MEDS: ASPIRIN EC 81 MG TABEC PO SCH (09:26)
[2017-10-10] MEDS: NIFEdipine 30 MG SUSTAINED RELEASE TAB PO SCH (09:26)
--- NOTE | 2017-10-10 11:01 | HHI.DS ---
Discharge Summary Admission Date Oct 06, 2017 at 14:33 Discharge Date: Oct 10, 2017 Admitting Diagnosis UTI/Altered Mental Status/Dementia (1) Dementia ICD Codes: F03.90 - Unspecified dementia without behavioral disturbance Status: Chronic (2) UTI (urinary tract infection) ICD Codes: N39.0 - Urinary tract infection, site not specified Status: Resolved (3) Hypertension ICD Codes: I10 - Essential (primary) hypertension Status: Acute Consultants Dr. Christian, palliative care Procedures none Brief History This is an 87 year old female with past medical history which includes paroxysmal atrial fibrillation, and was stopped July 2016 to concerns of noncompliance and risk of falls, hypertension, dementia, anxiety, hypothyroidism , chronic anemia. The patient is currently a poor historian and unable to provide meaningful information therefore information gathered from physical exam as well as prior charting and review of outpatient records. Patient was brought into the emergency department yesterday under a [place] act. Patient was with her friends at a restaurant. She was not acting herself. She did not remember where she was or why she was there. Police were called and they placed the patient under [place] act. Patient spent the evening and in J pod ( locked psychiatric observation unit) overnight. Patient's [place] act was listed this morning. Case management/emergency department and unable to safely to discharge the patient therefore we have been contacted for admission to the hospital. Patient found to have possible urinary tract infection by emergency department and started on Keflex 7 days CBC/BMP: 10/07/17 0643 10/07/17 0643 Imaging Last Impressions Chest X-Ray 10/06/17 1550 Signed Impressions: Service Date/Time: Friday, October 06, 2017 15:57 - CONCLUSION: No acute disease. There is no evidence of pneumonia. Pan Wood MD Head CT 10/05/17 0000 Signed Impressions: Service Date/Time: September 22:46 - CONCLUSION: 1. Atrophy. The ventricles are dilated out of proportion to the sulcal widening which suggests normal pressure hydrocephalus. 2. An acute area of hemorrhage or mass effect is not seen. Vishal Moreland MD PE at Discharge GENERAL: This is a well-nourished, well-developed patient, in no apparent distress. CARDIOVASCULAR: Regular rate and rhythm RESPIRATORY: Clear to auscultation. Breath sounds equal bilaterally. No wheezes , rales, or rhonchi. GASTROINTESTINAL: Abdomen soft, non-tender, nondistended. Normal active bowel sounds MUSCULOSKELETAL: Extremities without clubbing, cyanosis, or edema. NEURO: Oriented to self only. [facility] Hospital Course Dementia - aricept - D/C to SNF or [facility] - supportive care - consult palliative care for assistance - DVT prophylaxis SCDs while in bed patient ambulates frequently Patient medically stable for DC awaiting safe placement Per CM notes patient to be DC'd today to [facility] today UTI (urinary tract infection) Patient given Rocephin IV then started on Keflex in ER Urine culture reveals: 50, 000- 100, 000 mixed gram positive andreia DC Keflex Hypertension Patient has not been receiving her home medication - resumed lisinorpl 20 mg PO BID and nifedipine 30 MG PO BID add clonidine as needed monitor BP Pt Condition on Discharge: Stable Discharge Disposition: [facility] Discharge Instructions DIET: Follow Instructions for: Heart Healthy Diet Activities you can perform: Regular-No Restrictions Follow up Referrals: PCP Follow-up - [address] Shah New Medications: Clonidine (Clonidine) 0.1 Mg Tab 0.1 MG PO Q6HR PRN for SBP>180, DBP>95, #60 TAB 0 Refills Continued Medications: Aspirin (Adult Aspirin EC Low Strength) 81 Mg Tabec 81 MG PO DAILY for HTN, #31 TAB Atorvastatin (Atorvastatin) 40 Mg Tab 40 MG PO DAILY for hyperlipidemia, #31 TAB Donepezil HCl (Aricept) 5 Mg Tablet 10 MG PO HS for dementia, #31 TAB Levothyroxine (Levothyroxine) 25 Mcg Tab 25 MCG PO DAILY@0600 for hypothyroidism, #31 TAB Lisinopril (Lisinopril) 20 Mg Tab 20 MG PO Q12HR for HTN, #31 TAB Nifedipine ER 24 HR (Nifedipine ER 24 HR) 30 Mg Tab 30 MG PO BID for htn, #60 TAB Marie Valentin Oct 10, 2017 11:01 Luis Herrera MD Oct 10, 2017 13:07
[2017-10-10 11:26] VITALS: BP 176/83; PULSE 66; RESP 16; TEMP 98.1; O2SAT 99
[2017-10-10] MEDS ORDERED: LISI-515 PO (14:25)
[2017-10-10] MEDS ORDERED: ATOR40TA16 PO (14:25)
[2017-10-10] MEDS ORDERED: DONE10TA7 PO (14:25)
[2017-10-10] MEDS ORDERED: LEVO25TA4 PO (14:25)
[2017-10-10] MEDS ORDERED: NIFE30TA61 PO (14:25)
[2017-10-10] MEDS ORDERED: ASPI-516 CHEW (14:25)
[2017-10-10] MEDS ORDERED: ALPR.25 PO (14:30)
[2017-10-10 15:16] VITALS: BP 155/74; PULSE 76; RESP 16; TEMP 97.6; O2SAT 100
== END 2017-10-10 21:43 | disposition home or self-care (01) ==
LOC: NEPE 21:30 → NEDA 10-06 14:33 → NEPHCDU 10-06 19:53
PROVIDERS: ADMIT Hospitalist; ATTEND Hospitalist
DX: N39.0 Urinary tract infection, site not specified (principal); F03.91 Unspecified dementia, unspecified severity, with behavioral disturbance; I10 Essential (primary) hypertension; I48.0 Paroxysmal atrial fibrillation; Z51.5 Encounter for palliative care; M19.90 Unspecified osteoarthritis, unspecified site; M81.0 Age-related osteoporosis without current pathological fracture; I25.10 Atherosclerotic heart disease of native coronary artery without angina pectoris; R51 Headache; E03.9 Hypothyroidism, unspecified; Z95.2 Presence of prosthetic heart valve; Z87.442 Personal history of urinary calculi; D64.9 Anemia, unspecified
CPT/HCPCS: 70450; 71045; 80048; 80053; 80307; 81001; 85025; 85610; 85730; 87086; 93005; 96365; 96372; 97161; 99285; G0378; G8987; G8988; J0696; J1630